=== PATIENT | female | born 1960 | race Caucasian/White ===

== ENCOUNTER 2016-10-07 15:22 | Emergency (ER) | payer SELFPAY ==
[~2016-10-07] VITALS: Ht 157.5 cm; Wt 75.0 kg
[~2016-10-07 15:22] MED LIST: METO25CR PO
[2016-10-07 15:23] VITALS: BP 144/91; PULSE 97; RESP 16; TEMP 98.1; O2SAT 98
== END 2016-10-07 18:45 | disposition left against medical advice (07) ==
LOC: NED 15:22
DX: R10.9 Unspecified abdominal pain (principal)
CPT/HCPCS: 99281